=== PATIENT | female | born 1940 | race Caucasian/White ===

== ENCOUNTER 2025-05-04 09:15 | Emergency (ER) | payer OTHER, MEDICARE, SELFPAY ==
--- OUTSIDE RECORDS SUMMARY | 2016-05-09 03:29 | XMS_ITS | Continuity of Care Document ---
Author Organization [email or web address] Address [address] [place] [address] Phone Care Team Providers Care Customer Assistance Associate Name Role Phone Santa Orlando MD Unavailable Unavailable Allergies, Adverse Reactions, Alerts Substance Reaction Status Criticality POTASSIUM CLAVULANATE Hives / Skin Rash(severe) Active No Information AMOXICILLIN TRIHYDRATE Hives / Skin Rash(severe) Activ e No Information PRAVASTATIN SODIUM Other Active No Inform ation cholestyramine Other Active No Informatio n gemfibrozil Other Active No Information simvastatin Other Active No Information ATORVASTATIN CALCIUM Other Active No Info rmation MEPERIDINE HCL Skin Active No Informatio n morphine Skin Active No Information oxaprozin GI Active No Information doxycycline Other Active No Information Medications Medication Instructions Dosage Effective Dates (start - stop) Status Comments Medrol (Eron) 4 mg tablets in a dose pack take 1 Pack by Oral route take as directed 1 Pack - Active triamcinolone acetonide 0.1 % topical cream apply by topical route 2 times every day a thin layer to the affected area(s) 0.00 - Active oxybutynin chloride 5 mg tablet take 1 tablet (5MG) by oral route 3 times every day as needed - Active acyclovir 400 mg tablet take 1 tablet (400MG) by oral route 3 times every day - Active please mail prescription to patient when filled naproxen 500 mg tablet take 1 tablet (500MG) by oral route 2 times every day with food 500 MG - Active Astelin 137 mcg Nasal [place]ord Aerosol spray 1 spray by intranasal route 2 times every day in each nostril 1 spray - Active albuterol sulfate HFA 90 mcg/actuation Aerosol Inhaler inhale 2 puff by inhalation route every 4 - 6 hours as needed - Active multivitamin tablet - Active ASPIRIN 81 MG TABLET 1 QD-daily - Active SIMPLY SALINE 0.9% SPRAY(S) 1 DIRECTE - Active CALCIUM 600/MINERALS TABS 1 TID - Active Levoxyl 75 mcg tablet take 1 tablet by oral route every day 75 MCG - Active Vitamin B-12 1,000 mcg tablet take 2 by Oral route once daily - Active Atelvia 35 mg tablet,delayed release take 1 tablet by oral route every week in the morning immediately following breakfast with at least 4 oz of plain water 35 MG - Active Nasacort AQ 55 mcg nasal spray aerosol spray 2 spray by intranasal route every day in each nostril - Active Vitamin D2 50,000 unit capsule take 1 capsule by oral route every month 70083 UNITS - Active clobetasol 0.05 % Ointment apply by topical route 2 times every day a thin layer to the affected area(s) 0.00 - Active per insurance adjuster Zyrtec 10 mg tablet take 1 tablet (10MG) by oral route every day 10 MG - Active Restasis 0.05 % Eye Dropperette instill 1 drop by ophthalmic route every 12 hours into affected eye(s) 1.00 drop - Active Advance Directives Directive Yes / No Effective Date File Name No Information Encounters Encounter Description Practice Location Reason(s) For Visit Diagnoses Date Provider Providers Copied on Encounter [facility], [address], [place], [place], [address] , tel: [phone] [facility] No Information 6 Johanny Pratt. [address] [place] [address], [id number]. tel:[phone] [facility], [address], [place], [place], [address] , tel: [phone] [facility] Drug reaction, initial encounter 6 Lonnie Jimenez. [address] [place] [address], [id number], [place]. tel:[phone] Referring Provider: Santa Gramajo, [address] [place] [address] [address], [place], [address] . tel:[phone] [facility], [address], [place], [place], [address] , [place] tel: [phone] [facility] No Information 5 Johanny Pratt. [address] [place] [address], [facility] [address], [place], [place], [address]. tel:[phone] [facility], [address], [place], [place], [address] , [place] tel: [phone] [facility] Encntr for general adult medical exam w/o abnormal findingsHerpesvir al infection, unspecifiedHypoth yroidism, unspecifiedMetabo lic syndromeAllergic rhinitis, unspecifiedOsteop eniaUnspecified urinary incontinenceGastr itis, [id number] deficiency 5 Johanny Pratt. [address] [place] [address], [facility] [address], [place], [place], [address]. tel:[phone] Referring Provider: Santa Gramajo, [address] [place] [address] [address], [place], [address] . tel:[phone] [facility], [address], [place], [place], [address] , [place] tel: [phone] [facility] No Information 5 Johanny Pratt. [address] [place] [address], [facility] [address], [place], [place], [address]. tel:[phone] [facility], [address], [place], [place], [address] , [place] tel: [phone] [facility] No Information 4 Johanny Pratt. [address] [place] [address], [facility] [address], [place], [place], [address]. tel:[phone] [facility], [address], [place], [place], [address] , [place] tel: [phone] [facility] ROUTINE MEDICAL EXAMACQUIRED HYPOTHYROID NECDysmetabolic syndrome xUrinary incontinence, unspecifiedDisord er of bone and cartilage, unspecifiedALLERG IC RHINITIS NOS Feb- 0 4 Johanny Pratt. [address], [address], [place], [place], [address]. tel:[phone] Referring Provider: Santa Gramajo, [address] [place] [address] [address], [place], [address] . tel:[phone] [facility], [address], [place], [address] , [place] tel:[phone] [facility] OTHER ABNORMAL GLUCOSEDysmetabol ic syndrome xPure hypercholesterole miaDisorder of bone and cartilage, unspecifiedRoutin e general medical examination at a health care facilityOTHER ABNORMAL GLUCOSEDisorder of bone and cartilage, unspecified 3 Johanny Pratt. [address], [facility] [address], [place], [place], [address]. tel:[phone] Referring Provider: Santa Gramajo, [address] [place] [address], [place], [address] . tel:[phone] [facility], [address], [place], [place], [address] , [place] tel:[phone] [facility] Varicose veins of lower extremities without mention of ulcer or inflammation 3 Johanny Pratt. [address], [facility] [address], [place], [place], [address]. tel:[phone] [facility], [address], [place], [address] , [place] tel:[phone] [facility] Varicose vein Sep- 3 Bridger Lyons. [address], [place], [place], [address], [place]. tel:[phone] Referring Provider: Santa Gramajo, [facility] [address], [place], [address] . tel:[phone] [facility], [address], [place], [place], [address] , [place] tel: [phone] [facility] No Information 2 Johanny Pratt. [address], [facility] [address], [place], [place], [address]. tel:[phone] [facility], [address], [place], [place], [address] , [place] tel: [phone] [facility] Routine general medical examination at a health care facilityDysmetabo lic syndrome xHerpes simplex without mention of complicationPure hypercholesterole miaRoutine general medical examination at a health care facilityDiabetes mellitus without mention of complication, type II or unspecified type, not stated as uncontrolled Feb- 2 Johanny Pratt. [address] [place] [address], [facility] [address], [place], [place], [address]. tel:[phone] Referring Provider: Santa Gramajo, [address] [place] [address] [address], [place], [address] . tel:[phone] [facility], [address], [place], [place], [address] , tel: [phone] [facility] Dysmetabolic syndrome xHerpes simplex without mention of complicationUrina ry incontinence, unspecified Sep-3 1 Johanny Pratt. [address] [place] [address], [place] [address], [place], [place], [address]. tel:[phone] Referring Provider: Sanat Gramajo, [address] [place] [address] [address], [place], [address] . tel:[phone] [facility], [address], [place], [place], [address] , [place] tel: [phone] Conversion Department No Information 1 Conversion Doctor. [facility], [place], [address], [place]. [facility], [address], [place], [place], [address] , tel:[phone] [facility] ALLERGIC RHINITIS NOSHYPOTHYROIDISM NOSGENERAL OSTEOARTHROSISEXT RINSIC ASTHMA NOSDYSMETABOLIC SYNDROME X 1-201 0 Brunts Santa. [address], [place] [address], [place], [place], [address]. tel:[phone] [facility], [address], [place], [place], [address] , [place] tel:[phone] [facility] DIZZINESS AND GIDDINESS 9-201 0 Brunts Santa. [address], [place] [address], [place], [place], [address]. tel:[phone] [facility], [address], [place], [place], [address] , [place] tel:[phone] [facility] PURE HYPERCHOLESTEROLE M 4-200 9 Brunts Santa. [facility] [place] [address], [place], [place], [address]. tel:[phone] [facility] [address], [place], [place], [address] , [place] tel:[phone] [facility] URINARY INCONTINENCE NOS 1-200 8 Brunts Santa. [address] [place] [address], [place], [place], [address]. tel:[phone] [facility] [address], [place], [place], [address] , [place] tel:[phone] [facility] VACCIN FOR INFLUENZAJOINT PAIN-SHLDER 8-200 7 Brunts Santa. [facility] [place] [address], [place], [place], [address]. tel:[phone] [facility] [address], [place], [place], [address] , [place] tel: [phone] [facility] BONE & CARTILAGE DIS NOS 3-200 7 Brunts Santa. [address] [address], [place], [place], [address]. tel:[phone] [facility], [address], [place], [place], [address] , [place] tel: [phone] [facility] HERPES SIMPLEX NOS Syd-0 5-200 7 Brunts Santa. [address], [facility] [address], [place], [place], [address]. tel:[phone] [facility], [address], [place], [address] , [place] tel:[phone] [facility] ACQUIRED HYPOTHYROID NEC Dec-0 4-200 6 Brunts Santa. [address], [facility] [address], [place], [place], [address]. tel:[phone] [facility], [address], [place], [address] , [place] tel:[phone] [facility] ACTINIC KERATOSISCERVICAL RADHA Syd-0 7-200 5 Brunts Santa. [address], [place] [address], [place], [place], [address]. tel:[phone] [facility], [address], [place], [address] , [place] tel:[phone] [facility] No Information Syd-0 6-200 5 Brunts Santa. [facility], [place] [address], [place], [place], [address]. tel:[phone] [facility], [address], [place], [place], [address] , [place] tel: [phone] [facility] ATROPHIC VAGINITIS Apr-2 0-200 5 Conversion Doctor. [address], [place], [address], [place]. [facility], [address], [place], [address] , [place] tel: [phone] [facility] LONG-TERM USE MEDS NEC Oct-0 3-200 2 Brunts Santa. [address], [place] [address], [place], [place], [address]. tel:[phone] [facility], [address], [place], [place], [address] , tel: [phone] [facility] BACKACHE NOS 2 Johanny Pratt. [address], [facility] [address], [place], [place], [address]. tel:[phone] [facility], [address], [place], [place], [address] , tel: [phone] [facility] ANGINA PECTORIS NEC/NOS 2 Eric Saldana. [address] [facility], [place], [place], [address], [place]. tel: [phone] [facility], [address], [place], [place], [address] , tel: [phone] [facility] ROUTINE MEDICAL EXAMSCREEN MAL NEOP-RECTUM 1 Johanny Pratt. [address], [place] [address], [place], [place], [address]. tel:[phone] [facility], [address], [place], [place], [address] , [place] tel: [phone] [facility] SYNOV/TEND/BURSA DIS NEC 0 Johanny Pratt. [address], [place] [address], [place], [place], [address]. tel:[phone] Family History Family Member Type Diagnosis Age At Onset No Information Immunizations Vaccine Date Status Comments Pneumococcal conjugate PCV 13 administere d Note: Jewel ; Source: Other Provider Influenza, high dose seasonal administere d Note: Karoline ; Source: Other Provider Influenza, high dose seasonal administere d Note: walsakshit ; Source: Source Unspecified flu (split) (3 yrs or older) administered Source: Other Registry Fluzone administered Source: [facility] unization Record 54966 - Zoster_Shingles administered Sour ce: Source Unspecified 40810 - Influenza administered Source: So urce Unspecified TETANUS ANTIBODY administered Source: Luna rce Unspecified 32543 - TD administered Source: Source Unspecified 55541 - Influenza administered Source: Jada haney Unspecified 27727 - Pneumococcal_PPV23 administered S ource: Source Unspecified 08622 - TD administered Source: Source Unspecified Payers Payer name Insurance type Covered republican ID Authoriza tion(s) MEDICARE [place] [id number] [employer] [facility] [id number] Social History Type Description Quantity Date Captured Comments Alcohol Use Details Unknown Caffeine Use Details Unknown Tobacco Use Status No Information Smoking Status No Information Sex Female Chief Complaint And Reason For Visit No Information Reason For Referral Reason For Referral No Information History Of Present Illness Encounter Date Complaint History Of Prese nt Illness No Information Functional Status Date Functional Assessmen t No Information Instructions Date Instruction Additional Infor mation No Information Assessments Type Assessment Date No Information Patient Care Teams Name Effective Dates (start - stop) Status Members No Information
--- NOTE | 2025-05-04 09:16 | ED.FEMALEGU ---
HPI - Female Genitourinary General Chief complaint: Urogenital-Female Stated complaint: UTI Time Seen by Provider: 05/04/25 09:16 Source: patient Mode of arrival: ambulatory Limitations: no limitations History of Present Illness HPI Narrative: Macie is a 85 year old female patient presenting to the clinic today with c/o possible UTI. She reports burning with urination, dribbling, and urinary frequency. Does occasionally self cath herself. History of bladder surgery back in February. Developed a blood clot in her abdomen after surgery that they are watching. Last seen her urologist on April 29. Her urine was negative for any infection at that time. Denies any fever, chills, or bodyaches. Related Data Home Medications ?Medication ?Instructions ?Recorded ?Confirmed ?Last Taken ?Type acyclovir 400 mg tablet mg 05/04/25 Unknown History albuterol sulfate 90 mcg/actuation inhalation 05/04/25 Unknown History aerosol inhaler aspirin 81 mg tablet 81 mg PO DAILY 05/04/25 05/04/25 Unknown History carboxymethylcellulose sodium 0.25 1 drp EACH EYE DAILY 05/04/25 05/04/25 Unknown History % eye drops in a dropperette (TheraTears) carvedilol 6.25 mg tablet mg 05/04/25 Unknown History cetirizine 10 mg tablet (Allergy 10 mg PO DAILY PRN allergy symptoms 05/04/25 05/04/25 Unknown History Relief (cetirizine)) cholecalciferol (vitamin D3) 25 1,000 unit PO DAILY 05/04/25 05/04/25 Unknown History mcg (1,000 unit) capsule (Vitamin D3) clobetasol 0.05 % topical ointment topical 05/04/25 Unknown History estradiol 0.01% (0.1 mg/gram) vaginal 05/04/25 Unknown History vaginal cream evolocumab 140 mg/mL subcutaneous mg subcut 05/04/25 Unknown History pen injector (Repanthonya Litick) fluoride (sodium) 1.1 % dental 1 applic dental DAILY 05/04/25 05/04/25 Unknown History cream (PreviDent 5000 Plus) levothyroxine 88 mcg tablet mcg 05/04/25 Unknown History (Levoxyl) mecobalamin (vitamin B12) 1,000 1,000 mcg PO DAILY 05/04/25 05/04/25 Unknown History mcg chewable tablet nystatin 100,000 unit/gram topical 1 applic topical DAILY 05/04/25 05/04/25 Unknown History ointment vit C 250 mg-vit E 90 mg-zinc 40 1 tablet PO ONCE 05/04/25 05/04/25 Unknown History mg-copper 1 [id number] capsule (PreserVision AREDS-2) Allergies Allergy/AdvReac Type Severity Reaction Status Date / Time amoxicillin (From Augmentin) Allergy Rash Verified 05/04/25 09:42 cholestyramine Allergy Muscle Pain Verified 05/04/25 09:42 clavulanic acid (From Allergy Rash Verified 05/04/25 09:42 Augmentin) Iodinated Contrast Media Allergy Seizure Verified 05/04/25 09:42 meperidine (From Demerol) Allergy Itching Verified 05/04/25 09:42 morphine Allergy Itching Verified 05/04/25 09:42 nickel Allergy Swelling Verified 05/04/25 09:42 atorvastatin (From Lipitor) AdvReac Muscle Pain Verified 05/04/25 09:42 doxycycline AdvReac Nausea and Verified 05/04/25 09:42 Vomiting ezetimibe (From Zetia) AdvReac Muscle Pain Verified 05/04/25 09:42 gemfibrozil (From Lopid) AdvReac Chest Pain Verified 05/04/25 09:42 levofloxacin (From Levaquin) AdvReac Nausea and Verified 05/04/25 09:42 Vomiting monosodium glutamate AdvReac Headache Verified 05/04/25 09:42 oxaprozin (From Daypro) AdvReac Nausea and Verified 05/04/25 09:42 Vomiting Review of Systems Review of Systems: Pertinent positives per HPI. Patient denies any fever, chills, rash, headache, visual changes, dizziness, cough, runny nose, sore throat, shortness of breath, chest pain, palpitations, nausea, vomiting, diarrhea, constipation, abdominal pain PMFSH Comments At the time of my signature, I reviewed and agree with the nursing past medical, surgical, social, and family history. There is no relevant family history pertinent to the patient complaint. Exam Narrative: General: Well-developed, well nourished, in no apparent distress. Head: Normocephalic, atraumatic. Cardio: Regular rate and rhythm, s1 and s2 normal, no murmur appreciated. Resp: Clear to auscultation bilaterally, no rhonchi, rales, wheezing or rubs. Abdomen: Soft, pliable, bowel sounds present in all quadrants, suprapubic tender to palpation, no organomegly, no CVAT tenderness. Course Course Emergency Course: Portions of this record may have been created with voice recognition software. Level of Care: Express Care Visit Vital Signs Vital signs: Vital Signs Temperature 36.6 C 05/04/25 09:30 Pulse Rate 87 05/04/25 09:30 Respiratory Rate 18 05/04/25 09:30 Blood Pressure 147/62 H 05/04/25 09:30 Pulse Oximetry 98 05/04/25 09:30 Oxygen Delivery Room Air 05/04/25 09:30 Temperature 36.6 C 05/04/25 09:30 Pulse Rate 87 05/04/25 09:30 Respiratory Rate 18 05/04/25 09:30 Blood Pressure 147/62 H 05/04/25 09:30 Pulse Oximetry 98 05/04/25 09:30 Oxygen Delivery Room Air 05/04/25 09:30 Vital signs reviewed MDM - Female Genitourinary MDM Narrative Medical decision making narrative: At the time of visit patient is resting comfortably on the exam table. Patient appears to be nontoxic. C/o possible UTI. She reports burning with urination, dribbling, and urinary frequency. Does occasionally self cath herself. History of bladder surgery back in February. Developed a blood clot in her abdomen after surgery that they are watching. Last seen her urologist on April 29. Her urine was negative for any infection at that time. Denies any fever, chills, or body aches. Urine dip ordered. Labs: Urinalysis positive for leukocytes, blood, and protein. We will send urine for culture. Plan: I suspect patient has complicated UTI. Prescription for Bactrim DS 1 tab b.i.d. x7 days was sent to the pharmacy. Will send urine for culture. Supportive measures were discussed with the patient and they voiced understanding discharge instructions and agrees to treatment plan. Return precautions reviewed Differential Diagnosis Differential diagnosis: Likely urinary tract infection, cystitis and other (Pyelonephritis, overactive bladder) Discharge Plan Discharge Clinical Impression: Urinary tract infection Qualifiers: Urinary tract infection type: acute cystitis Hematuria presence: with hematuria Qualified Code(s): N30.01 - Acute cystitis with hematuria Patient Disposition: Home Condition: Stable Instructions: Antibiotic Form, Urinary Tract Infection in Older Adults (ED) Additional Instructions: Urinalysis shows leukocytes, blood, and protein in your urine. We will send urine for culture. Take Bactrim DS as prescribed Increase fluids and stay well hydrated Wipe front to back. May use wet wipes. Avoid tub baths If sexually active- pee before and after intercourse. Wear cotton panties Avoid tight clothing up against the genitals Follow up with your PCP in 1 week if symptoms persist. Patient Language: Thai Prescriptions: New sulfamethoxazole-trimethoprim [Bactrim DS] 800-160 mg tablet 1 tablet PO Q12H 7 Days Qty: 14 0RF No Action carvedilol 6.25 mg tablet acyclovir 400 mg tablet levothyroxine [Levoxyl] 88 mcg tablet clobetasol 0.05 % ointment TOPICAL estradiol 0.01 % (0.1 mg/gram) cream VAGINAL albuterol sulfate 90 mcg/actuation HFA aerosol inhaler INHALATION Repatha SureClick 140 mg/mL pen injector SUBCUT aspirin 81 mg tablet 81 mg PO DAILY TheraTears 0.25 % dropperette 1 drp EACH EYE DAILY cetirizine [Allergy Relief (cetirizine)] 10 mg tablet 10 mg PO DAILY PRN (Reason: allergy symptoms) nystatin 100,000 unit/gram ointment 1 applic topical DAILY PreserVision AREDS-2 250-90-40-1 mg capsule 1 tablet PO ONCE fluoride (sodium) [PreviDent 5000 Plus] 1.1 % cream 1 applic dental DAILY mecobalamin (vitamin B12) 1,000 mcg tablet,chewable 1,000 mcg PO DAILY cholecalciferol (vitamin D3) [Vitamin D3] 25 mcg (1,000 unit) capsule 1,000 unit PO DAILY Follow-up/Referrals: UNKNOWN,DOCTOR [Primary Care Provider] Time of Disposition: 10:02 Quality NIHSS Nursing Documentation ED NIHSS nursing documentation: reviewed/agree
--- OUTSIDE RECORDS SUMMARY | 2025-05-04 09:26 | XMS_ITS | Encounter Summary ---
Author Organization [facility] Address [address] [place] [address] Care Team Providers Care Transmission Supervisor Name Role Phone Leonarda Chatterjee MD Primary Care Provider [phone] Encounter Details Date Type Department Care Team (Latest Contact Info) Description 08/19/2022 [employer] Message [facility] [place] [address] Merly Portillo, SIRIA [address] [phone] Labs for upcoming visit September 15 Social History Tobacco Use Types Packs/Day Years Used Date Smoking Tobacco: Never Smokeless Tobacco: Never Alcohol Use Standard Drinks/Week Comments Never 0 (1 standard drink = 0.6 oz pur e alcohol) AUDIT-C Answer Date Recorded Q1: How often do you have a drink containing alc ohol? 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 Answer Date of Assessment Author Status No 09/01/2020 2:00 AM CDT Activ e * Do you have serious difficulty walking or climbing stairs? Answer Date of Assessment Author Status No 09/01/2020 2:00 AM CDT Ab Contreras RN Active * Do you have difficulty dressing or bathing? Answer Date of Assessment Author Status No 09/01/2020 2:00 AM CDT Ab Contreras RN Active * Because of a physical, mental, or emotional condition, do you have difficulty doing errands alone such as visiting a doctor's office or shopping? Answer Date of Assessment Author Status No 09/01/2020 2:00 AM CDT Ab Contreras RN Active documented as of this encounter Mental Status * Because of a physical, mental, or emotional condition, do you have serious difficulty concentrating, remembering, or making decisions? Answer Entry Date Author Status No 09/01/2020 2:00 AM CDT Ab Contreras RN Active documented in this encounter Plan of Treatment Upcoming Encounters Date Type Department Care Team (Late st Contact Info) Description 12/04/2025 9:15 AM CDT Office Visit [facility] [place] [address] Max Dimas MD [address] [place] [address] documented as of this encounter Goals Goal Patient Goal Type Associated Problems Recent Progress Patient-Stated? Author Establish Regular Follow-Ups with PCP Hospitality Specialist General Kim Crockett RN documented as of this encounter Visit Diagnoses Not on filedocumented in this encounter Care Teams Transmission Supervisor Relationship Specialty Start Date End Date Leonarda Chatterjee MD [address] [address] PCP - General FAMILY PRACTICE 08/31/20 documented as of this encounter
--- OUTSIDE RECORDS SUMMARY | 2025-05-04 09:26 | XMS_ITS | Clinical Summary ---
Author Organization [facility] Address [address] [place] [address] Care Team Providers Care Slp Name Role Phone Santa Orlando MD Primary Care Provider Clark Sidhu MD Unavailable [phone] Tran Otto MD Unavailable [phone] Kristin Torre MD Unavailable [phone] Michele Galeano MD Unavailable Christine Brock MD Unavailable [phone] Zeinab Costello MD Unavailable [phone] [facility],non-owned Affiliates and Associated Physician Practices is amultiple site organization consisting of ambulatory clinics and hospital sitesin [place], [place], [place] and [place]. This disclosure is being madepursuant to the Care Everywhere program and may not contain all information available regarding this patient. Last updated 18.[facility] Allergies Active Allergy Reactions Criticality Noted Date Comments Augmentin 09/16/2015 Oxaprozin 01/16/2012 Meperidine 01/16/2012 Doxycycline GI Discomfort 07/24/2012 Atorvastatin 01/16/2012 Morphine 01/16/2012 Hmg-Coa-R Inhibitors Myalgias 07/24/2012 Medications * Be aware that medications may not be up to date on this document. Alwaysverify current medications with the patient. vitamin D2 (ERGOCALCIFEROL ) 15864 UNIT capsule Take 1 Cap by mouth every 30 days. Active clobetasol (TEMOVATE) 0.05 % ointment Apply to affected area 2 times daily. Active azelastine (ASTELIN) 137 MCG/SPRAY nasal spray [place] 1 [place] into each nostril 2 times daily. Active albuterol HFA (PROAIR HFA) 108 (90 BASE) MCG/ACT inhaler Inhale 2 Puffs by mouth every 6 hours as needed. Active cetirizine (ZYRTEC ALLERGY) 10 MG tablet Take 10 mg by mouth once daily. Active acyclovir (ZOVIRAX) 400 MG tablet Take 400 mg by mouth 3 times daily. As needed Active oxybutynin (DITROPAN) 5 MG tablet Take 5 mg by mouth 2 times daily. As needed Active naproxen (NAPROSYN) 500 MG tablet Take 500 mg by mouth 2 times daily. As needed Active Cholecalciferol (VITAMIN D) 2000 UNITS CAPS Take by mouth once daily. Active triamcinolone (NASACORT ALLERGY 24HR) 55 MCG/ACT nasal inhaler [place] 1 [place] into each nostril once daily. Active Blood Glucose Monitoring Suppl (ONE TOUCH ULTRA 2) W/DEVICE KIT Use as directed to test blood sugars 1 Kit 2 5 Active aspirin (ASPIRIN) 325 MG tablet Take 325 mg by mouth 3 times a week Active blood glucose (ONETOUCH ULTRA TEST STRIPS) test strip Use as directed once daily and as needed- replacing freestyle 100 Strip 5 5 Active LEVOXYL 75 MCG tablet TAKE ONE TABLET BY MOUTH EVERY DAY BEFORE BREAKFAST 90 Tab 3 6 Active Active Problems Problem Noted Date Diagnosed Date Macular degeneration 09/16/2015 Overview (09/16/2015): 2016 Bilateral hearing loss 09/16/2015 Overview (09/16/2015): Mod - severe: Requiring bilat aids Cystocele, midline 06/21/2012 Incomplete bladder emptying 06/21/2012 Mixed urge and stress incontinence 06/21/2012 Overweight 01/13/2012 Overview (04/19/2015): 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 01/13/2012 Overview (03/13/2023): March 2023 Regulatory Update Hypothyroidism Overview (03/12/2015): Dysmetabolic syndrome X Family History Medical History Relation Name Comments Bipolar Disorder Brother Cancer - Other Brother Mental Health Brother Cancer - Pancreatic Father CVA<55(male) Mother NC<65(female) Mother Osteoporosis Mother Clotting Disorder Sister Hypertension Sister Diabetes Neg Hx Thyroid Disease Neg Hx Relation Name Status Comments Brother Father Mother Sister Social History Tobacco Use Types Packs/Day Years Used Date Smoking Tobacco: Former Alcohol Use Standard Drinks/Week Comments No 0 (1 standard drink = 0.6 oz pur e alcohol) Comments Unknown Sex and Gender Information Value Date Recorded Sex Assigned at Not on file 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 Gender Identity Not on file Sexual Orientation Not on file Last Filed Vital Signs Vital Sign Reading Time Taken Comments Blood Pressure 132/68 09/16/2015 1:10 PM CDT Pulse 92 09/16/2015 1:10 PM CDT Temperature 36.6 C (97.8 F) 09/01/2014 9:25 AM CDT Respiratory Rate 12 09/01/2014 9:25 AM CDT Oxygen Saturation - - Inhaled Oxygen Concentration - - Weight 79.4 kg (175 lb) 09/16/2015 1:10 PM CDT Height 160 cm (5' 3) 09/16/2015 1:10 PM CDT Body Mass Index 31 09/16/2015 1:10 PM CDT Plan of Treatment Health Maintenance Due Date Last Done Comments BONE DENSITY TESTING 1941 DTAP/TDAP/TD VACCINES (1 - Tdap) 02/19/1960 PNEUMOCOCCAL VACCINE 50+ (1 of 1 - PCV) 1991 ZOSTER VACCINE (1 of 2) 1991 Respiratory Syncytial Virus (RSV) Vaccine Pt: or over 60 yrs (1 - 1-dose 75+ series) 02/19/2016 DEPRESSION SCREENING 06/12/2024 COVID-19 VACCINE ( - 2024-2 6 season) 2025 INFLUENZA VACCINE (#1) 2025 HEPATITIS B VACCINE Aged Out No longe r eligible based on patient's age to complete this topic HIB VACCINE Aged Out No longer eligi ble based on patient's age to complete this topic HPV VACCINE Aged Out No longer eligi ble based on patient's age to complete this topic MENINGOCOCCAL (Group B) VACC INE SHARED DECISION-MAKING Aged Out No longer eligibl e based on patient's age to complete this topic MENINGOCOCCAL GROUPS A/C/Y/W VACCINE Aged Out No longer eligible b ased on patient's age to complete this topic [place] [address] [employer] Care Teams Slp Relationship Specialty Start Date End Date Santa Orlando MD [address] [facility] [address] [place] [address] PCP - General Internal Medicine 01/13/12 Clark Sidhu MD [address] [place] [address] Vascular Surgery 01/20/14 Tran Otto MD [address] [address] [facility] [address] [address] [place] [address] Dermatology 03/16/15 Kristin Torre MD [address] [place] [address] Obstetrics and Gynecology 03/16/15 Michele Galeano MD [address] [place] [address] Allergy and Immunology 03/16/15 [place] [address] [address] Endocrinology 03/16/15 [place] [address] [address] Ophthalmology 09/16/15
--- OUTSIDE RECORDS SUMMARY | 2025-05-04 09:26 | XMS_ITS | Encounter Summary ---
Author Organization [facility] Address [address] [place] [address] Care Team Providers Care Relocation Associate Name Role Phone Leonarda Chatterjee MD Primary Care Provider [phone] Reason for Visit * Reason Onset Date Comments Advice 04/18/2022 Encounter Details Date Type Department Care Team (Late st Contact Info) Description 04/18/2022 Incentive Message [facility] [place] [address] Max Dimas MD [address] [address] New diagnosis Social History Tobacco Use Types Packs/Day Years [...] on file Legal Sex Female 10:56 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 Answer Entry Date Author Status No 09/01/2020 2:00 AM CDT Ab Contreras RN Active documented in this encounter Progress Notes * Rufina Kelly RN - 04/19/2022 10:07 AM CST Patient informed of the response and v/u. Patient had no further questions. 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 NICAL TRAINING COORDINATOR * Merly Portillo NP - 04/18/2022 3:46 [address] CST Will let Dr. Dimas handle this. NICAL TRAINING COORDINATOR * Max Dimas MD - 04/18/2022 3:44 PM CST I think you are in good hands at [facility]. Thanks for the update, keep us posted. NICAL TRAINING COORDINATOR * Rufina Kelly RN - 04/18/2022 2:15 PM CST Patient called in and had an MRA head and neck that can be reviewed in care everywhere. She is wanting to talk with us regarding this new diagnosis. She is also waiting for the neuro fellow and the vascular surgery as well. NICAL TRAINING COORDINATOR * Rufina Kelly RN - 04/18/2022 12:58 PM CST See below, NICAL TRAINING COORDINATOR documented in this encounter Plan of Treatment Upcoming Encounters Date Type Department Care Team (Late st Contact Info) Description 12/04/2025 9:15 AM CDT Office Visit [place] [facility] [place] [address] Max Dimas MD [facility]. [facility] [address] [place] [address] documented as of this encounter Goals Goal Patient Goal Type Associated Problems Recent Progress Patient-Stated? Author Establish Regular Follow-Ups with PCP Side Panel Hanger Kim Lewis RN documented as of this encounter Visit Diagnoses Not on filedocumented in this encounter Care Teams Relocation Associate Relationship Specialty Start Date End Date Leonarda Chatterjee MD [address] [facility] [address] [place] [address] PCP - General FAMILY PRACTICE 08/31/20 documented as of this encounter
--- OUTSIDE RECORDS SUMMARY | 2025-05-04 09:26 | XMS_ITS | Encounter Summary ---
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 Author Establish Regular Follow-Ups with PCP Strainer Cleaner General Kim Crockett RN documented as of this encounter Procedures Procedure Name Priority Date/Time Associated Diagnosis Comments COMPREHENSIVE METABOLIC PANEL Routine 03/07/2022 LIPID PANEL Routine 03/07/2022 LIPID PANEL Routine 01/11/2021 documented in this encounter Results * COMPREHENSIVE METABOLIC PANEL (03/07/2022) SODIUM S/P/B 140 POTASSIUM S/P/B 4.3 CO2 26 CHLORIDE S/P/B 105 GLUCOSE 96 mg/dL CALCIUM S/P/B 8.9 BUN 14 CREATININE S/P/B 0.78 0.5 - 1.0 EGFR NON-AFR. AMER. 76 <=90 ALKALINE PHOSPHATASE S/P/B 88 ALT 45 AST 41 BILIRUBIN TOTAL S/P/B 0.5 ALBUMIN S/P/B 4.0 3.5 - 5.0 TOTAL PROTEIN S/P/B 6.7 GLOBULIN 4.0 03/07/2022 us Doc [facility] Final Result * LIPID PANEL (03/07/2022) CHOLESTEROL 155 HDL 53 TRIGLYCERIDES 67 NON HDL CHOLESTEROL 102 LDL (CALCULATED) 87 03/07/2022 us Doc [facility] Final Result * LIPID PANEL (01/11/2021) CHOLESTEROL 175 HDL 59 TRIGLYCERIDES 94 NON HDL CHOLESTEROL 116 LDL (CALCULATED) 97 01/11/2021 us Doc [facility] Final Result documented in this encounter Visit Diagnoses Not on filedocumented in this encounter Care Teams Um Nurse Relationship Specialty Start Date End Date Leonarda Chatterjee MD [address] [address] PCP - General FAMILY PRACTICE 08/31/20 documented as of this encounter
--- OUTSIDE RECORDS SUMMARY | 2025-05-04 09:26 | XMS_ITS | Encounter Summary ---
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 OR MERCHANT documented in this encounter Plan of Treatment Upcoming Encounters Date Type Department Care Team (Late st Contact Info) Description 12/04/2025 9:15 AM CDT Office Visit [facility] [address] [place] [address] Max Dimas MD [facility]. [facility] [address] [place] [address] documented as of this encounter Goals Goal Patient Goal Type Associated Problems Recent Progress Patient-Stated? Author Establish Regular Follow-Ups with PCP Soubrette Kim Lewis RN documented as of this encounter Visit Diagnoses Not on filedocumented in this encounter Care Teams Trimmer And Reinforcer Relationship Specialty Start Date End Date Leonarda Chatterjee MD [address] [facility] [address] [place] [address] PCP - General FAMILY PRACTICE 08/31/20 documented as of this encounter
--- OUTSIDE RECORDS SUMMARY | 2025-05-04 09:26 | XMS_ITS | Encounter Summary ---
Author Organization [facility] Address [address] [place] [address] Care Team Providers Care Catering Operations Manager Name Role Phone Leonarda Chatterjee MD Primary Care Provider [phone] Encounter Details Date Type Department Care Team (Latest Contact Info) Description 10/04/2021 [employer] Message [facility] [address] [place] [address] Merly Portillo, LINING FELLER BLINDSTITCH [address] [phone] Moderna Booster #1 Social History Tobacco Use Types Packs/Day Years [...] on file Legal 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 No / Unsure 09/30/2021 1:16 PM CDT documented as of this encounter Functional Status [...] Description 12/04/2025 9:15 AM CDT Office Visit [facility] [place] [address] Max Dimas MD [facility]. [facility] [address] [place] [address] documented as of this encounter Goals Goal Patient Goal Type Associated Problems Recent Progress Patient-Stated? Author Establish Regular Follow-Ups with PCP Mechanical Meter Tester General No Kim Warren RN documented as of this encounter Visit Diagnoses Not on filedocumented in this encounter Care Teams Catering Operations Manager Relationship Specialty Start Date End Date Leonarda Chatterjee MD [address] [facility] [address], [place] [address] PCP - General FAMILY PRACTICE 08/31/20 documented as of this encounter
--- OUTSIDE RECORDS SUMMARY | 2025-05-04 09:26 | XMS_ITS | Encounter Summary ---
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 ER ELECTROLYTIC documented in this encounter Plan of Treatment Upcoming Encounters Date Type Department Care Team (Late st Contact Info) Description 12/04/2025 9:15 AM CDT Office Visit [place] [address] [place] [address] Max Dimas MD [facility] [address] [place] [address] documented as of this encounter Goals Goal Patient Goal Type Associated Problems Recent Progress Patient-Stated? Author Establish Regular Follow-Ups with PCP Chief Librarian Work With Blind Kim Lewis RN documented as of this encounter Visit Diagnoses Not on filedocumented in this encounter Care Teams C 13 Catapult Operator Relationship Specialty Start Date End Date Leonarda Chatterjee MD [address] [facility] [address] [place] [address] PCP - General FAMILY PRACTICE 08/31/20 documented as of this encounter
--- OUTSIDE RECORDS SUMMARY | 2025-05-04 09:26 | XMS_ITS | Encounter Summary ---
Author Organization 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 Author Establish Regular Follow-Ups with PCP Medical Administrative Technician General Kim Crockett RN documented as of this encounter Visit Diagnoses Not on filedocumented in this encounter Care Teams Wireline Supervisor Relationship Specialty Start Date End Date Leonarda Chatterjee MD [address] [facility] [address], [place] [address] PCP - General FAMILY PRACTICE 08/31/20 documented as of this encounter
--- OUTSIDE RECORDS SUMMARY | 2025-05-04 09:26 | XMS_ITS | Encounter Summary ---
Author Organization [facility] Address [address] [place] [address] Care Team Providers Care Technical Marketing Engineer Name Role Phone Leonarda Chatterjee MD Primary Care Provider [phone] Encounter Details Date Type Department Care Team (Latest Contact Info) Description 11/18/2021 City [employer] Finance Message [facility] [address] [place] [address] Merly Portillo, SIRIA [address] [phone] Covid Booster #2 Social History Tobacco Use Types Packs/Day Years [...] on file Legal 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 Author Establish Regular Follow-Ups with PCP Collision Repair Technician General Kim Crockett RN documented as of this encounter Visit Diagnoses Not on filedocumented in this encounter Care Teams Technical Marketing Engineer Relationship Specialty Start Date End Date Leonarda Chatterjee MD [address] [address] PCP - General FAMILY PRACTICE 08/31/20 documented as of this encounter
[2025-05-04 09:30] VITALS: BP 147/62; PULSE 87; RESP 18; TEMP 36.6; O2SAT 98
[2025-05-05 11:52] LABS: EDUAAPPEAR Cloudy; EDUABILI Negative (Negative); EDUABLOOD 3+ (Negative); EDUACOLOR1 Yellow; EDUAGLUCOSE Negative (Negative); EDUAKETONE Negative (Negative); EDUALEUKO 2+ (Negative); EDUANITRATE Negative (Negative); EDUAPH 5.5; EDUAPROTEIN 2+ (Negative); EDUASPGRAVITY 1.025; EDUAUROBILI 0.2
== END 2025-05-04 10:06 | disposition home or self-care (01) ==
PROVIDERS: Emergency Provider Nurse Practitioner Family
DX: N30.01 Acute cystitis with hematuria (principal); Z79.82 Long term (current) use of aspirin
CPT/HCPCS: 81003; 87086; 99203; G0463